=== PATIENT | female | born 1960 | race Caucasian/White ===

== ENCOUNTER 2017-08-09 12:44 | Day surgery (SDC) | payer MEDICARE, OTHER ==
[2017-08-09] MEDS ORDERED: PROPOFOL 20 ML (14:53)
[2017-08-09] MEDS ORDERED: LIDOCAINE 2% (SDV) 5 ML INJ (14:53)
[2017-08-09] MEDS ORDERED: MIDAZOLAM 1 MG/ML 2 ML INJ (14:53)
== END 2017-08-09 17:44 | disposition home or self-care (01) ==
LOC: GIL 12:44
DX: Z12.11 Encounter for screening for malignant neoplasm of colon (principal); K62.1 Rectal polyp; E66.9 Obesity, unspecified; Z68.35 Body mass index [BMI] 35.0-35.9, adult
CPT/HCPCS: 45380; 88305